=== PATIENT | female | born 1990 | race Caucasian/White ===

== ENCOUNTER 2023-05-29 13:52 | Emergency (ER) | payer SELFPAY ==
[~2023-05-29] VITALS: Ht 157.5 cm; Wt 81.8 kg
[2023-05-29 14:09] VITALS: TEMP 98.6
[2023-05-29] MEDS ORDERED: HYDROCODONE/ACETAMINOPHEN 5-325 MG TABLET PO ONE (15:00)
[2023-05-29] MEDS ORDERED: KETOROLAC TROMETHAMINE 60 MG/2 ML VIAL IM ONE (15:00)
[2023-05-29] MEDS ORDERED: METHOCARBAMOL 500 MG TABLET PO ONE (15:00)
[2023-05-29] MEDS ORDERED: LORazepam 2 MG/ML VIAL IVP ONE (16:30)
[2023-05-29] MEDS ORDERED: HYDROmorphone HCL 2 MG/ML SYRINGE IVP ONE (16:30)
[2023-05-29] MEDS ORDERED: HYDR-4072 PO (16:47)
[2023-05-29] MEDS ORDERED: IBUP-1554 PO (16:47)
[2023-05-29] MEDS ORDERED: METH-812 PO (16:47)
[2023-05-29 17:29] VITALS: BP 132/88; PULSE 80; RESP 16
== END 2023-05-29 17:30 | disposition home or self-care (01) ==
LOC: EMS 13:54
DX: S39.012A Strain of muscle, fascia and tendon of lower back, initial encounter (principal); M54.9 Dorsalgia, unspecified; X58.XXXA Exposure to other specified factors, initial encounter; Y93.89 Activity, other specified; Y92.89 Other specified places as the place of occurrence of the external cause; Y99.8 Other external cause status
CPT/HCPCS: 99284; 71045; 72070; 81025; 96372; J1885

== ENCOUNTER 2024-01-15 04:27 | Emergency (ER) | payer MEDICAID, OTHER ==
[~2024-01-15] VITALS: Ht 152.4 cm; Wt 83.0 kg
[~2024-01-15 04:27] MED LIST: HYDR-4072 PO; IBUP-1554 PO; METH-812 PO
[2024-01-15 06:19] LABS: BASOPHILS % (AUTO) 0.4 % (0.0-2.0); EOSINOPHILS % (AUTO) 0.1 % (1.0-6.0); HEMATOCRIT 40.9 % (36-46); LYMPHOCYTES # (AUTO) 1.2 K/uL (1.0-4.8); LYMPHOCYTES % (AUTO) 8.5 % (22.0-44.0); MEAN CORPUSCULAR HEMOGLOBIN 31.1 pg (26.0-34.0); MEAN CORPUSCULAR HGB CONC 34.2 G/dL (31.0-37.0); MEAN CORPUSCULAR VOLUME 91 fL (80-100); MONOCYTES # (AUTO) 0.6 K/uL (0.1-1.0); MONOCYTES % (AUTO) 3.9 % (2.0-9.0); NEUTROPHILS # (AUTO) 12.4 K/uL (1.8-7.7); PLATELET COUNT (AUTO) 244 K/uL (150-450); RED CELL DISTRIBUTION WIDTH 13.1 % (11.5-14.5); WHITE BLOOD COUNT (AUTO) 14.3 K/uL (4.5-11.0)
[2024-01-15 06:28] LABS: NEUTROPHILS % (AUTO) 87.1 % (40.0-70.0)
[2024-01-15 06:29] LABS: ANION GAP 11 mmol/L (8-16); CARBON DIOXIDE 26 mmol/L (22-29); CHLORIDE 102 mmol/L (98-107); CREATININE 0.67 mg/dL (0.60-1.30); GLOMERULAR FILTR. RATE CALC > 60 mL/min (>60); GLUCOSE,RANDOM 134 mg/dL (70-110); POTASSIUM 3.2 mmol/L (3.5-5.1); SODIUM SERUM 139 mmol/L (136-145); UREA NITROGEN, BLOOD 8 mg/dL (7-18)
[2024-01-15 06:37] LABS: ALANINE AMINOTRANSFERASE 92 U/L (12-78); ALBUMIN 3.4 g/dL (3.4-5.0); ALKALINE PHOSPHATASE 104 U/L (46-116); ASPARTATE AMINOTRANSFERASE 47 U/L (15-37); BILIRUBIN,TOTAL 0.4 mg/dL (0.1-1.0); LIPASE 21 U/L (16-77)
[2024-01-15] MEDS: FAMOTIDINE 20 MG/2 ML VIAL IVP ONE (06:49)
[2024-01-15] MEDS: ONDANSETRON HCL 4 MG/2 ML VIAL IVP ONE (06:49)
[2024-01-15] MEDS: ACETAMINOPHEN 1000 MG/ISO-OSM 100 ML IV ONE (06:49)
[2024-01-15] MEDS: SODIUM CHLORIDE 0.9% 2,000 ML IV ONE (06:50)
[2024-01-15 07:40] LABS: COVID AG,FIA SOURCE NASAL SWAB
[2024-01-15 07:41] LABS: LACTIC ACID 1.8 mmol/L (0.4-2.0)
[2024-01-15 07:43] LABS: APPEARANCE,URINE HAZY (CLEAR); BILIRUBIN,URINE NEGATIVE (NEGATIVE); GLUCOSE, URINE (UA) NEGATIVE (NEGATIVE); KETONES,URINE NEGATIVE (NEGATIVE); LEUKOCYTE ESTERASE ,URINE NEGATIVE (NEGATIVE); NITRATE,URINE NEGATIVE (NEGATIVE); OCCULT BLOOD,URINE LARGE (NEGATIVE); PH,URINE 7.5 (5.0-8.0); PROTEIN,URINE 30-70 mg/dL (NEGATIVE); SPECIFIC GRAVITIY, URINE 1.017 (1.003-1.030); UROBILINOGEN,URINE <=1.0 mg/dL (<=1.0)
[2024-01-15 07:44] LABS: COLOR,URINE LIGHT ORANGE (YELLOW)
[2024-01-15 07:56] LABS: BACTERIA,URINE Moderate /HPF (None Seen); SQUAMOUS EPITHELIAL CELL,UR Many /LPF (None Seen)
[2024-01-15 08:17] VITALS: BP 125/74; PULSE 91; RESP 14; TEMP 98.3
[2024-01-15] MEDS ORDERED: ACET-3385 PO (08:22)
[2024-01-15] MEDS ORDERED: ONDA-104 PO (08:22)
[2024-01-15] MEDS ORDERED: CEPH-558 PO (08:22)
[2024-01-15] MEDS: CEPHALEXIN MONOHYDRATE 500 MG CAPSULE PO ONE (08:33)
[2024-01-15 08:50] LABS: INFLUENZA TYPE A NEGATIVE FOR TYPE A (NEGATIVE); INFLUENZA TYPE B NEGATIVE FOR TYPE B (NEGATIVE); SARS-COV2 (COVID) ANTIGEN,FIA Negative (Negative)
== END 2024-01-15 08:46 | disposition home or self-care (01) ==
LOC: EMS 04:28
DX: N39.0 Urinary tract infection, site not specified (principal); R11.2 Nausea with vomiting, unspecified; R50.9 Fever, unspecified; Z20.822 Contact with and (suspected) exposure to COVID-19
CPT/HCPCS: 99284; 96365; 96375; 87426; 80048; 80076; 81001; 83605; 83690; 84703; 85025; 87040; 87804; 36415; 87086; 87186; J3490; J2405; J7030; J0131

== ENCOUNTER 2024-11-21 19:17 | Emergency (ER) | payer OTHER ==
[~2024-11-21] VITALS: Ht 152.4 cm; Wt 77.3 kg
[~2024-11-21 19:17] MED LIST changes: +ACET-3385 PO; +CEPH-558 PO; +ONDA-104 PO
[2024-11-21 19:35] VITALS: BP 129/69; PULSE 89; RESP 16; TEMP 98.2; O2SAT 98
[2024-11-21 21:13] LABS: BASOPHILS % (AUTO) 0.4 % (0.0-2.0); EOSINOPHILS % (AUTO) 1.3 % (1.0-6.0); HEMATOCRIT 44.1 % (36-46); HEMOGLOBIN 14.8 g/dL (12.0-16.0); LYMPHOCYTES # (AUTO) 2.8 K/uL (1.0-4.8); LYMPHOCYTES % (AUTO) 31.9 % (22.0-44.0); MEAN CORPUSCULAR HEMOGLOBIN 30.7 pg (26.0-34.0); MEAN CORPUSCULAR HGB CONC 33.5 G/dL (31.0-37.0); MEAN CORPUSCULAR VOLUME 92 fL (80-100); MONOCYTES # (AUTO) 0.5 K/uL (0.1-1.0); MONOCYTES % (AUTO) 5.9 % (2.0-9.0); NEUTROPHILS # (AUTO) 5.4 K/uL (1.8-7.7); NEUTROPHILS % (AUTO) 60.5 % (40.0-70.0); PLATELET COUNT (AUTO) 265 K/uL (150-450); RED BLOOD CELL COUNT(AUTO) 4.81 MIL/uL (4.00-5.20); RED CELL DISTRIBUTION WIDTH 12.9 % (11.5-14.5); WHITE BLOOD COUNT (AUTO) 8.9 K/uL (4.5-11.0)
[2024-11-21 21:24] LABS: ANION GAP 9 mmol/L (8-16); CALCIUM, TOTAL 9.6 mg/dL (8.8-10.5); CARBON DIOXIDE 29 mmol/L (22-29); CHLORIDE 102 mmol/L (98-107); CREATININE 0.67 mg/dL (0.60-1.30); GLOMERULAR FILTR. RATE CALC > 60 mL/min (>60); GLUCOSE,RANDOM 102 mg/dL (70-110); POTASSIUM 4.3 mmol/L (3.5-5.1); SODIUM SERUM 140 mmol/L (136-145); UREA NITROGEN, BLOOD 6 mg/dL (7-18)
[2024-11-21] MEDS: IBUPROFEN 400 MG TABLET PO ONE (22:47)
[2024-11-21] MEDS: ACETAMINOPHEN 325 MG TABLET PO ONE (22:48)
[2024-11-21] MEDS: PHENAZOPYRIDINE HCL 100 MG TABLET PO ONE (22:48)
[2024-11-21 23:07] LABS: APPEARANCE,URINE HAZY (CLEAR); BILIRUBIN,URINE NEGATIVE (NEGATIVE); COLOR,URINE LIGHT YELLOW (YELLOW); GLUCOSE, URINE (UA) NEGATIVE (NEGATIVE); KETONES,URINE NEGATIVE (NEGATIVE); LEUKOCYTE ESTERASE ,URINE LARGE (NEGATIVE); NITRATE,URINE NEGATIVE (NEGATIVE); OCCULT BLOOD,URINE MODERATE (NEGATIVE); PROTEIN,URINE NEGATIVE (NEGATIVE); SPECIFIC GRAVITIY, URINE 1.005 (1.003-1.030); UROBILINOGEN,URINE <=1.0 mg/dL (<=1.0)
[2024-11-21 23:10] LABS: HCG,QUAL URINE NEGATIVE (NEGATIVE)
[2024-11-21 23:20] LABS: BACTERIA,URINE Few /HPF (None Seen); SQUAMOUS EPITHELIAL CELL,UR Moderate /LPF (None Seen); WBC,URINE 26-50 /HPF (0-5)
[2024-11-21] MEDS ORDERED: PHEN-846 PO (23:43)
[2024-11-21] MEDS ORDERED: CEFP200T12 PO (23:43)
[2024-11-22] MEDS: CEFPODOXIME PROXETIL 200 MG TABLET PO ONE (00:12)
== END 2024-11-22 00:14 | disposition home or self-care (01) ==
LOC: EMS 19:17
DX: N39.0 Urinary tract infection, site not specified (principal); Z87.440 Personal history of urinary (tract) infections
CPT/HCPCS: 80048; 81001; 84703; 85025; 87086; 99284

== ENCOUNTER 2025-05-08 08:19 | Emergency (ER) | payer OTHER ==
[~2025-05-08] VITALS: Ht 160 cm; Wt 63.6 kg
[~2025-05-08 08:19] MED LIST changes: +CEFP200T12 PO; +PHEN-846 PO
[2025-05-08 08:27] VITALS: TEMP 97.9
[2025-05-08 08:59] LABS: APPEARANCE,URINE HAZY (CLEAR); GLUCOSE, URINE (UA) NEGATIVE (NEGATIVE); LEUKOCYTE ESTERASE ,URINE LARGE (NEGATIVE); NITRATE,URINE NEGATIVE (NEGATIVE); OCCULT BLOOD,URINE LARGE (NEGATIVE); SPECIFIC GRAVITIY, URINE 1.023 (1.003-1.030)
[2025-05-08 09:11] LABS: SULFOSALICYLIC ACID,URINE 2+ (Negative)
[2025-05-08 09:12] LABS: HCG,QUAL URINE NEGATIVE (NEGATIVE); SQUAMOUS EPITHELIAL CELL,UR Many /LPF (None Seen)
[2025-05-08] MEDS: SODIUM CHLORIDE 0.9% 500 ML IV ONE (10:24)
[2025-05-08] MEDS: KETOROLAC TROMETHAMINE 30 MG/ML VIAL IVP ONE (10:24)
[2025-05-08] MEDS: CefTRIAXone 1 GM/DEXTROSE 50 ML IV ONE (10:24)
[2025-05-08] MEDS ORDERED: CEPH-558 PO (10:28)
[2025-05-08 12:13] VITALS: BP 126/74; PULSE 82; RESP 16; O2SAT 99
== END 2025-05-08 12:25 | disposition home or self-care (01) ==
LOC: EMS 08:25
DX: N39.0 Urinary tract infection, site not specified (principal); R30.0 Dysuria; R68.83 Chills (without fever); R10.24 Suprapubic pain; Z79.899 Other long term (current) drug therapy
CPT/HCPCS: 99284; 96365; 96375; 81001; 84703; 87086; J1885; J0696; J7040; 81002

== ENCOUNTER 2025-05-28 17:58 | Emergency (ER) | payer OTHER ==
[~2025-05-28] VITALS: Ht 162.6 cm; Wt 86.4 kg
[2025-05-28 18:44] LABS: COVID AG,FIA SOURCE NASAL SWAB
[2025-05-28 18:48] VITALS: BP 123/90; PULSE 84; RESP 16; TEMP 98.2; O2SAT 100
[2025-05-28 19:27] LABS: SARS-COV2 (COVID) ANTIGEN,FIA Negative (Negative)
[2025-05-28 19:28] LABS: INFLUENZA TYPE A NEGATIVE FOR TYPE A (NEGATIVE); INFLUENZA TYPE B NEGATIVE FOR TYPE B (NEGATIVE)
== END 2025-05-28 22:26 | disposition left against medical advice (07) ==
LOC: EMS 17:58
DX: R11.2 Nausea with vomiting, unspecified (principal); Z53.21 Procedure and treatment not carried out due to patient leaving prior to being seen by health care provider; Z20.822 Contact with and (suspected) exposure to COVID-19
CPT/HCPCS: 87804; 99281; Z7502